=== PATIENT | female | born 1985 | race Caucasian/White ===

== ENCOUNTER 2017-08-05 14:21 | Emergency (ER) | payer BC ==
--- NOTE | 2017-08-05 15:17 | UC ---
Lower Extremity/Ankle HPI - HPI Summary HPI Summary: 32 YEAR OLD PRESENTS WITH COMPLAINS OF RIGHT FOOT PAIN AFTER FALLING. - History of Current Complaint Stated Complaint: RIGHT FOOT COMPLAINT Time Seen by Provider: 08/05/17 15:16 Hx Obtained From: Patient Onset/Duration: Sudden Onset Severity Initially: Moderate Severity Currently: Moderate Pain Scale Used: 0-10 Numeric - 5 Aggravating Factor(s): Standing Alleviating Factor(s): Rest Able to Bear Weight: Yes - Allergies/Home Medications Allergies/Adverse Reactions: Allergies Allergy/AdvReac Type Severity Reaction Status Date / Time Cephalexin [From Keflex] Allergy Hives Verified 08/05/17 15:27 Home Medications: Home Medications Multivit-Min W/Fe-FA [ and Iron] 08/05/17 [History] PMH/Surg Hx/FS Hx/Imm Hx Previously Healthy: Yes Review of Systems Constitutional: Negative Skin: Negative Eyes: Negative ENT: Negative Respiratory: Negative Cardiovascular: Negative Gastrointestinal: Negative Genitourinary: Negative Motor: Negative Neurovascular: Negative Musculoskeletal: Other: - RIGHT FOOT/BIG TOE PAIN Neurological: Negative Psychological: Negative All Other Systems Reviewed And Are Negative: Yes Physical Exam Triage Information Reviewed: Yes Eye Exam: Normal ENT Exam: Normal Dental Exam: Normal Neck exam: Normal Neck: Positive: 1 Respiratory Exam: Normal Cardiovascular Exam: Normal Abdominal Exam: Normal Musculoskeletal: Positive: Other: - RIGHT FOOT/BIG TOE PAIN Neurological Exam: Normal Psychological Exam: Normal Skin Exam: Normal Lower Extremity Course/Dx - Differential Dx/Diagnosis Provider Diagnoses: RIGHT BIG TOE PAIN Discharge - Discharge Plan Condition: Stable Disposition: HOME Prescriptions: Ibuprofen TAB* [Motrin TAB* 800 MG] 800 mg PO Q8H #30 tab Patient Education Materials: Foot Contusion (ED) Referrals: Ian Chandra MD [Medical Doctor] -
[2017-08-05 15:27] VITALS: BP 114/64
--- NOTE | 2017-08-05 15:59 | RAD ---
INDICATION: Right foot injury. TECHNIQUE: 3 views of the right foot were obtained. FINDINGS: The bones are in normal alignment. No fracture is seen. Joint spaces appear maintained. IMPRESSION: NO EVIDENCE FOR FRACTURE, IF THE PATIENT'S SYMPTOMS PERSIST RECOMMEND FOLLOW-UP IMAGING.
== END 2017-08-05 16:10 | disposition home or self-care (01) ==
LOC: UCCORT 14:21
DX: M25.571 Pain in right ankle and joints of right foot (principal); W19.XXXA Unspecified fall, initial encounter; Y92.9 Unspecified place or not applicable; Z32.02 Encounter for pregnancy test, result negative; Z88.1 Allergy status to other antibiotic agents
CPT/HCPCS: 84702; 99202; G0463

== ENCOUNTER 2018-06-23 19:30 | Emergency (ER) | payer BC ==
[2018-06-23 20:15] VITALS: BP 128/78
[2018-06-23] MEDS ORDERED: Amoxicillin PO (*) 500 MG CAP PO ONE (21:05)
--- NOTE | 2018-06-23 22:24 | UC ---
Complaint Female HPI - HPI Summary HPI Summary: Patient states that she gave on June 18, she had a spontaneous vaginal delivery. Patient states she patient states she had catheterization twice, and started having burning urination yesterday. Patient states she's had many UTIs in the past and this feels like the onset of her another one. Patient is currently breast-feeding her baby, and she is allergic to Keflex. Patient denies flank pain, chills, fever, nausea or vomiting. - History Of Current Complaint Chief Complaint: UCGU Stated Complaint: UTI SYMPTOMS Time Seen by Provider: 06/23/18 20:15 Hx Obtained From: Patient Hx Last Menstrual Period: 07/09/17 ?: No Onset/Duration: Sudden Onset, Lasting Days Timing: Intermittent Severity Initially: Mild Severity Currently: Moderate Pain Intensity: 4 Pain Scale Used: 0-10 Numeric Character: Burning Aggravating Factor(s): Urination Associated Signs And Symptoms: Positive: Negative - Risk Factors Ectopic Risk Factor: Negative Ovarian Torsion Risk Factor: Negative - Allergies/Home Medications Allergies/Adverse Reactions: Allergies Allergy/AdvReac Type Severity Reaction Status Date / Time cephalexin [From Keflex] Allergy Hives Verified 06/23/18 19:54 Home Medications: Home Medications Docusate CAP* [Colace Cap*] 1 tab DAILY 06/23/18 [History Confirmed 06/23/18] Ibuprofen TAB* [Motrin TAB* 800 MG] 1 tab Q8HR PRN 06/23/18 [History Confirmed 06/23/18] Polyethylene Glycol 3350* [Miralax*] 1 packet DAILY PRN 06/23/18 [History Confirmed 06/23/18] Vitamin TAB* 1 tab DAILY 06/23/18 [History Confirmed 06/23/18] PMH/Surg Hx/FS Hx/Imm Hx Previously Healthy: Yes - Surgical History Surgical History: None - Family History Known Family History: Positive: None - Social History Alcohol Use: None Substance Use Type: None Smoking Status (MU): Never Smoked Tobacco - Immunization History Most Recent Tetanus Shot: 2017 Review of Systems Genitourinary: Dysuria, Frequency All Other Systems Reviewed And Are Negative: Yes Physical Exam Triage Information Reviewed: Yes Appearance: Well-Appearing, No Pain Distress, Well-Nourished Vital Signs: Initial Vital Signs Temp 98 F 06/23/18 19:58 Pulse 80 06/23/18 19:58 Resp 16 06/23/18 19:58 BP 128/78 06/23/18 19:58 Pulse Ox 100 06/23/18 19:58 Vital Signs Reviewed: Yes Eyes: Positive: Conjunctiva Clear ENT: Positive: Hearing grossly normal Neck: Positive: Supple, Nontender, No Lymphadenopathy Respiratory: Positive: Chest non-tender Cardiovascular: Positive: Pulses Normal, Brisk Capillary Refill Abdomen Description: Positive: Nontender, No Organomegaly, Soft Bowel Sounds: Positive: Present Complaint Female Dx - Course Course Of Treatment: The patient has presence of leukocytes and blood in urine analysis. Symptoms suggestive of new onset urinary tract infection. Patient will start Amoxil as prescribed, and aggressive oral hydration with fluids. Patient was advised to watch for signs of allergic reaction to the antibiotic. 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 - Differential Dx/Diagnosis Provider Diagnoses: UTI Discharge - Sign-Out/Discharge Documenting (check all that apply): Patient Departure - Discharge Plan Condition: Stable Disposition: HOME Prescriptions: Amoxicillin PO (*) [Amoxicillin 875 MG (*)] 875 mg PO BID 7 Days #14 tab Patient Education Materials: Urinary Tract Infection in Women (ED), Amoxicillin (By mouth) Referrals: Barb Canales NP [Primary Care Provider] - - Billing Disposition and Condition Condition: STABLE Disposition: Home
== END 2018-06-23 21:29 | disposition home or self-care (01) ==
LOC: UCCORT 19:30
DX: O86.20 Urinary tract infection following delivery, unspecified (principal); Z88.1 Allergy status to other antibiotic agents
CPT/HCPCS: 81003; 87086; 99212; A9270-GY; G0463

== ENCOUNTER 2019-02-06 19:18 | Emergency (ER) | payer BC ==
--- NOTE | 2019-02-06 19:47 | UC ---
Abdominal Pain Female HPI - HPI Summary HPI Summary: Patient presents to urgent care for concern of vaginal yeast infection. Patient states she's had them recurrently. Patient has not however about 6 months. Patient states 5 days ago she had an IUD placed. Patient states 3 days ago she noticed some white discharge is, thick. Mild itching. Patient is not using [id number] products. Patient has had successful treatment with Diflucan of the past. Patient is approximately 9 months. Patient is not breast-feeding. Patient without any concern for sexual transmitted disease. Not Medications reviewed this visit - History of Current Complaint Stated Complaint: PERSONAL Time Seen by Provider: 02/06/19 19:44 Hx Obtained From: Patient Hx Last Menstrual Period: 07/09/17 Onset/Duration: Gradual Onset Severity Currently: Mild Pain Scale Used: 0-10 Numeric Allergies/Adverse Reactions: Allergies Allergy/AdvReac Type Severity Reaction Status Date / Time cephalexin [From Keflex] Allergy Hives Verified 02/06/19 19:52 Home Medications: Home Medications Copper (Iud) [Paragard IUD] 1 unit IU DAILY 02/06/19 [History Confirmed 02/06/19 ] PMH/Surg Hx/FS Hx/Imm Hx Previously Healthy: Yes Other GI/ History: yeast infections - Surgical History Surgical History: None - Family History Known Family History: Positive: None, Non-Contributory - Social History Occupation: Employed Full-time Lives: With Family Alcohol Use: None Substance Use Type: None Smoking Status (MU): Never Smoked Tobacco - Immunization History Most Recent Tetanus Shot: 2017 Review of Systems All Other Systems Reviewed And Are Negative: Yes Constitutional: Positive: Negative Genitourinary: Positive: Vaginal/Penile Itching, Vaginal/Penile Discharge. Negative: Vaginal/Penile Burning, Vaginal/Penile Pain, Vaginal/Penile Tenderness Physical Exam - Summary Physical Exam Summary: Vital Signs Reviewed: Yes A+Ox3, no distress Eyes: Conjunctiva Clear, DESIREE. EOM intact and full ENT: Hearing grossly normal TM x 2 clear, mmoist, uvula midline, no exudate, no erythema Neck: Positive: Supple Respiratory: Positive: No respiratory distress, No accessory muscle use + CTA throughout no w/r Cardiovascular: RRR nl s1, s2 no m/r CBT <2 sec abd soft + BS nt/nd no guarding, no distension, no CVA Pelvic: No external lesions. pt with thick white discharge in vaginal canal and vault, No bleeding no odor - RN Darien at bedside Musculoskeletal Exam: ROBERTS x 4 without difficulty Strength Intact, ROM Intact Neurological: Positive: Alert, + sensation throughout Psychological: Positive: Normal Response To Family Skin: Positive: no rash, no ecchymosis Triage Information Reviewed: Yes Abd Pain Female Course/Dx - Course Course Of Treatment: Patient presents to urgent care for evaluation of vaginal yeast infection. Patient with progressive symptoms or 3 days. Patient is not immunocompromised or diabetic. Exam consistent with vaginal yeast. Affirms sent. We will give her dose of Diflucan. We'll give one refill. Patient comfortable in agreement with plan. Strict return precautions. - Differential Dx/Diagnosis Provider Diagnosis: Vaginal yeast infection Discharge - Sign-Out/Discharge Documenting (check all that apply): Patient Departure All imaging exams completed and their final reports reviewed: No Studies - Discharge Plan Condition: Stable Disposition: HOME Prescriptions: Fluconazole [Diflucan 150 MG (NF)] 150 mg PO ONCE PRN #1 tab MDD 1 PRN Reason: vaginal yeast infection Patient Education Materials: Yeast Infection (ED) Referrals: Mirlande Lugo MD [Primary Care Provider] - Additional Instructions: - You have been treated for a vaginal yeast infection after evaluation today. Your sample will be send for confirmation testing If you need a different treatment,you will receive a call from a care support team member - this may take 2-3 days - Do not drink alcohol 48 hours before and after taking diflucan - stay hydrated - contact your doctor or return with questions or concerns - Billing Disposition and Condition Condition: STABLE Disposition: Home
[2019-02-06 19:52] VITALS: BP 90/74
== END 2019-02-06 20:25 | disposition home or self-care (01) ==
LOC: UCCORT 19:18
DX: B37.3 Candidiasis of vulva and vagina (principal); Z88.1 Allergy status to other antibiotic agents
CPT/HCPCS: 87480; 87510; 99212; G0463